=== PATIENT | female | born 1955 | race African-American/Black ===

== ENCOUNTER 2024-06-29 06:47 | Emergency (ER) | payer MEDICARE, MEDICAID ==
[~2024-06-29] VITALS: Ht 172.7 cm; Wt 64.0 kg
[2024-06-29 06:55] VITALS: BP 168/86; PULSE 99; RESP 16; TEMP 36.7; O2SAT 100
[2024-06-29] MEDS: METOCLOPRAMIDE HCL 10MG/2ML VIAL IM ONE (09:00)
[2024-06-29] MEDS: DIPHENHYDRAMINE 50MG/ML VIAL IM STA (09:00)
[2024-06-29] MEDS: KETOROLAC 30MG/ML VIAL IM ONE (09:00)
== END 2024-06-29 10:01 | disposition home or self-care (01) ==
LOC: ER 07:24
DX: G43.909 Migraine, unspecified, not intractable, without status migrainosus (principal); I25.2 Old myocardial infarction; I10 Essential (primary) hypertension
CPT/HCPCS: 99284; 96372; J1885; J1200; J2765